=== PATIENT | male | born 1990 | race Caucasian/White ===

== ENCOUNTER 2019-02-04 14:38 | Emergency (ER) | payer OTHER ==
[~2019-02-04] VITALS: Ht 180.3 cm; Wt 100.0 kg
[2019-02-04 14:38] VITALS: BP 133/70
[2019-02-04] MEDS ORDERED: VALT1TAB PO (14:44)
[2019-02-04] MEDS ORDERED: VALT500T PO (15:41)
== END 2019-02-04 15:48 | disposition home or self-care (01) ==
LOC: M ED 14:38
DX: Z76.0 Encounter for issue of repeat prescription (principal); A60.02 Herpesviral infection of other male genital organs; Z79.899 Other long term (current) drug therapy